=== PATIENT | female | born 1940 | race Caucasian/White ===

== ENCOUNTER 2020-10-03 11:50 | Outpatient (REF) | payer MEDICARE, OTHER, SELFPAY ==
[2020-10-03 13:24] LABS: Hematocrit 39.7 % (37-47); Hemoglobin 12.9 g/dl (12.0-16.0); Mean Corpuscular HGB Conc 32.5 g/dl (31.0-35.0); Mean Corpuscular Hemoglobin 29.1 pg (27.0-33.0); Mean Corpuscular Volume 89.6 fL (80-98); Mean Platelet Volume 10.1 fL (9.4-12.3); Platelet Count 264 X10*3/uL (160-400); Red Blood Count 4.43 X10*6/uL (4.20-5.50); Red Cell Distribution Width 13.5 % (11.0-16.0); White Blood Count 6.1 X10*3/uL (4.8-10.8)
[2020-10-03 13:40] LABS: Alanine Aminotransferase 16 U/L (0-31); Albumin Level 4.5 g/dL (3.5-5.0); Alkaline Phosphatase 76 U/L (39-117); Anion Gap 13 (12-20); Aspartate Amino Transferase 18 U/L (5-31); Bilirubin Total 0.7 mg/dL (0.0-1.0); Blood Urea Nitrogen 25 mg/dL (9-16); Calcium 9.2 mg/dL (8.4-10.2); Carbon Dioxide 26 mmol/L (22-29); Chloride 105 mmol/L (96-108); Cholesterol 147 mg/dL; Estimated Glomerular Filt Rate > 60; Glucose Fasting 95 mg/dL (60-99); HDL Cholesterol 64 mg/dL; LDL Cholesterol Calculated 67 mg/dl; Potassium 4.4 mmol/L (3.3-5.1); Sodium 140 mmol/L (135-145); Total Protein 7.1 g/dL (6.5-8.0); Triglycerides 83 mg/dL
[2020-10-04 09:33] LABS: Vitamin B12 538 pg/mL (200-900)
== END 2020-10-03 11:51 | disposition home or self-care (01) ==
LOC: HO.MANLDS 11:50
PROVIDERS: PCP Internal Medicine; Visit Provider Internal Medicine
DX: I10 Essential (primary) hypertension (principal); E78.00 Pure hypercholesterolemia, unspecified; E53.8 Deficiency of other specified B group vitamins
CPT/HCPCS: 36415; 80053; 80061; 82607; 85027

== ENCOUNTER 2021-10-12 10:47 | Outpatient (REF) | payer MEDICARE, OTHER, SELFPAY ==
[2021-10-12 13:59] LABS: Hematocrit 42.8 % (37.0-47.0); Hemoglobin 13.8 g/dl (12.0-16.0); Mean Corpuscular HGB Conc 32.2 g/dl (31.0-35.0); Mean Corpuscular Hemoglobin 28.5 pg (27.0-33.0); Mean Corpuscular Volume 88.4 fL (80.0-98.0); Platelet Count 286 X10*3/uL (160-400); Red Blood Count 4.84 X10*6/uL (4.20-5.50); Red Cell Distribution Width 14.5 % (11.0-16.0); White Blood Count 7.7 X10*3/uL (4.8-10.8)
[2021-10-12 14:20] LABS: Alanine Aminotransferase 22 U/L (0-31); Albumin Level 4.8 g/dL (3.5-5.0); Alkaline Phosphatase 94 U/L (39-117); Anion Gap 13 (12-20); Aspartate Amino Transferase 20 U/L (5-31); Bilirubin Total 0.6 mg/dL (0.0-1.0); Blood Urea Nitrogen 26 mg/dL (9-16); Calcium 10.2 mg/dL (8.4-10.2); Carbon Dioxide 27 mmol/L (22-29); Chloride 105 mmol/L (96-108); Cholesterol 165 mg/dL; Estimated Glomerular Filt Rate > 60; Glucose Fasting 110 mg/dL (60-99); HDL Cholesterol 71 mg/dL; LDL Cholesterol Calculated 80 mg/dl; Potassium 4.7 mmol/L (3.3-5.1); Sodium 140 mmol/L (135-145); Total Protein 7.7 g/dL (6.5-8.0); Triglycerides 71 mg/dL
[2021-10-12 14:44] LABS: Vitamin D 25-OH Total 53.3 ng/mL (>30)
== END 2021-10-12 10:48 | disposition home or self-care (01) ==
LOC: HO.MANLDS 10:47
PROVIDERS: PCP Internal Medicine; Visit Provider Internal Medicine
DX: E78.00 Pure hypercholesterolemia, unspecified (principal)
CPT/HCPCS: 36415; 80053; 80061; 82306; 85027

== ENCOUNTER 2022-04-16 09:39 | Outpatient (REF) | payer MEDICARE, OTHER, SELFPAY ==
[2022-04-16 11:10] LABS: MANUAL DIFF FLAG NO
[2022-04-16 11:20] LABS: Basophils Percent Auto 0.5 % (0-2); Eosinophils Absolute Auto 0.1 X10*3/uL (0.0-0.4); Hematocrit 41.1 % (37.0-47.0); Hemoglobin 13.2 g/dl (12.0-16.0); Imm Gran Abs Auto 0.02 X10*3/uL (0.00-0.03); Imm Gran Pct Auto 0.3 % (0.0-0.4); Lymphocytes Absolute Auto 1.5 X10*3/uL (1.2-4.9); Lymphocytes Percent Auto 22.8 % (20-40); Mean Corpuscular HGB Conc 32.1 g/dl (31.0-35.0); Mean Corpuscular Hemoglobin 28.3 pg (27.0-33.0); Mean Platelet Volume 9.8 fL (9.4-12.3); Monocytes Absolute Auto 0.6 X10*3/uL (0.1-1.2); Monocytes Percent Auto 8.9 % (2-11); Neutrophils Absolute Auto 4.2 x10*3/uL (2.0-8.3); Neutrophils Percent Auto 65.5 % (45-73); Platelet Count 247 X10*3/uL (160-400); Red Blood Count 4.67 X10*6/uL (4.20-5.50); Red Cell Distribution Width 13.9 % (11.0-16.0); White Blood Count 6.4 X10*3/uL (4.8-10.8)
[2022-04-16 11:35] LABS: Alanine Aminotransferase 20 U/L (0-31); Albumin Level 4.5 g/dL (3.5-5.0); Alkaline Phosphatase 77 U/L (39-117); Anion Gap 17 (12-20); Aspartate Amino Transferase 20 U/L (5-31); Bilirubin Total 0.7 mg/dL (0.0-1.0); Blood Urea Nitrogen 36 mg/dL (9-16); Calcium 9.8 mg/dL (8.4-10.2); Carbon Dioxide 25 mmol/L (22-29); Chloride 106 mmol/L (96-108); Cholesterol 175 mg/dL; Estimated Glomerular Filt Rate > 60; Glucose Random 106 mg/dL (60-115); HDL Cholesterol 67 mg/dL; LDL Cholesterol Calculated 94 mg/dl; Potassium 5.6 mmol/L (3.3-5.1); Sodium 142 mmol/L (135-145); Total Protein 7.1 g/dL (6.5-8.0); Triglycerides 74 mg/dL
== END 2022-04-16 09:40 | disposition home or self-care (01) ==
LOC: HO.MANLDS 09:39
PROVIDERS: Visit Provider Internal Medicine
DX: I25.9 Chronic ischemic heart disease, unspecified (principal)
CPT/HCPCS: 36415; 80053; 80061; 85025

== ENCOUNTER 2022-10-20 09:33 | Outpatient (REF) | payer MEDICARE, OTHER, SELFPAY ==
[2022-10-20 11:25] LABS: MANUAL DIFF FLAG NO
[2022-10-20 12:08] LABS: Basophils Absolute Auto 0.1 X10*3/uL (0.0-0.2); Basophils Percent Auto 0.7 % (0-2); Eosinophils Absolute Auto 0.1 X10*3/uL (0.0-0.4); Eosinophils Percent Auto 0.9 % (0-4); Hematocrit 44.5 % (37.0-47.0); Hemoglobin 14.3 g/dl (12.0-16.0); Imm Gran Abs Auto 0.04 X10*3/uL (0.00-0.03); Imm Gran Pct Auto 0.4 % (0.0-0.4); Lymphocytes Absolute Auto 1.8 X10*3/uL (1.2-4.9); Lymphocytes Percent Auto 17.9 % (20-40); Mean Corpuscular HGB Conc 32.1 g/dl (31.0-35.0); Mean Corpuscular Hemoglobin 28.3 pg (27.0-33.0); Mean Corpuscular Volume 87.9 fL (80.0-98.0); Mean Platelet Volume 10.1 fL (9.4-12.3); Monocytes Absolute Auto 0.7 X10*3/uL (0.1-1.2); Neutrophils Absolute Auto 7.4 x10*3/uL (2.0-8.3); Neutrophils Percent Auto 73.1 % (45-73); Platelet Count 288 X10*3/uL (160-400); Red Blood Count 5.06 X10*6/uL (4.20-5.50); Red Cell Distribution Width 14.5 % (11.0-16.0); White Blood Count 10.1 X10*3/uL (4.8-10.8)
[2022-10-20 12:45] LABS: Alanine Aminotransferase 15 U/L (0-31); Albumin Level 4.6 g/dL (3.5-5.0); Alkaline Phosphatase 93 U/L (39-117); Anion Gap 18 (12-20); Aspartate Amino Transferase 16 U/L (5-31); Bilirubin Total 0.9 mg/dL (0.0-1.0); Blood Urea Nitrogen 25 mg/dL (9-16); Calcium 9.7 mg/dL (8.4-10.2); Carbon Dioxide 22 mmol/L (22-29); Chloride 105 mmol/L (96-108); Cholesterol 165 mg/dL; Estimated Glomerular Filt Rate > 60; Glucose Random 103 mg/dL (60-115); HDL Cholesterol 78 mg/dL; LDL Cholesterol Calculated 75 mg/dl; Potassium 4.5 mmol/L (3.3-5.1); Sodium 140 mmol/L (135-145); Total Protein 7.3 g/dL (6.5-8.0); Triglycerides 63 mg/dL
[2022-10-20 12:53] LABS: Thyroid Stimulating Hormone 1.11 uIU/mL (0.32-4.0); Vitamin B12 1225 pg/mL (200-900)
== END 2022-10-20 09:34 | disposition home or self-care (01) ==
LOC: HO.MANLDS 09:33
PROVIDERS: Visit Provider Internal Medicine
DX: I25.9 Chronic ischemic heart disease, unspecified (principal); E53.8 Deficiency of other specified B group vitamins; G93.32 Myalgic encephalomyelitis/chronic fatigue syndrome
CPT/HCPCS: 36415; 80053; 80061; 82607; 84443; 85025

== ENCOUNTER 2023-05-16 07:48 | Outpatient (REF) | payer MEDICARE, OTHER, SELFPAY ==
[2023-05-16 14:08] LABS: Alanine Aminotransferase 17 U/L (0-31); Albumin Level 4.3 g/dL (3.5-5.0); Alkaline Phosphatase 80 U/L (39-117); Anion Gap 13 (12-20); Aspartate Amino Transferase 20 U/L (5-31); Bilirubin Total 0.5 mg/dL (0.0-1.0); Blood Urea Nitrogen 18 mg/dL (9-16); Calcium 9.7 mg/dL (8.4-10.2); Carbon Dioxide 24 mmol/L (22-29); Chloride 108 mmol/L (96-108); Cholesterol 163 mg/dL (<200); Estimated Glomerular Filt Rate > 60; Glucose Fasting 95 mg/dL (60-99); HDL Cholesterol 67 mg/dL (>40); LDL Cholesterol Calculated 82 mg/dL (<100); Potassium 4.1 mmol/L (3.3-5.1); Sodium 141 mmol/L (135-145); Total Protein 7.3 g/dL (6.5-8.0); Triglycerides 72 mg/dL (<150)
[2023-05-16 14:27] LABS: Vitamin D 25-OH Total 118.1 ng/mL (>30)
== END 2023-05-16 07:49 | disposition home or self-care (01) ==
LOC: HO.MANLDS 07:48
PROVIDERS: Visit Provider Internal Medicine
DX: E78.00 Pure hypercholesterolemia, unspecified (principal); I10 Essential (primary) hypertension; E55.9 Vitamin D deficiency, unspecified
CPT/HCPCS: 36415; 80053; 80061; 82306

== ENCOUNTER 2025-02-07 08:00 | Outpatient (AMB) | payer MEDICARE, OTHER, SELFPAY ==
--- OUTSIDE RECORDS SUMMARY | 2025-02-07 08:03 | XMS_ITS | Data Portability ---
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 REVIEW OF PRIOR EXTERNAL NOTES/RESULTS, ORDERING OF TEST(S) CATEGORY 2. 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) MDM MODERATE MUST MEET 2 OUT OF 3 ELEMENTS: PROBLEMS, DATA OR RISK ELEMENT 1: PROBLEMS ADDRESSED 1 OR MORE CHRONIC ILLNESS WITH EXACERBATION OR 2 OR MORE STABLE CHRONIC ILLNESSES OR 1 UNDIAGNOSED NEW PROBLEM OR 1 ACUTE ILLNESS W/SYMPTOMS OR 1 ACUTE COMPLICATED INJURY ELEMENT 2: DATA MUST MEET 1 OF 3 CATEGORIES CATEGORY 1: REVIEW OF PRIOR EXTERNAL NOTES, REVIEW OF RESULTS, ORDERING OF EACH TEST, ASSESSMENT REQUIRING INDEPENDENT HISTORIAN OR CATEGORY 2: INDEPENDENT INTERPRETATION OF TESTS BY ANOTHER PHYSICIAN OR SPECIALIST OR CATEGORY 3: DISCUSSION OF MGT OR TEST INTERPRETATION W/EXTERNAL PHYSICIAN OR SPECIALIST ELEMENT 3: RISK RISK OF COMPLICATIONS AND/OR MORBIDITY OR MORTALITY OF PATIENT MANAGEMENT PROVIDER MUST THOROUGHLY DOCUMENT EACH ELEMENT THAT IS COVERED Not available 04/25/2024 09:54:52 09/21/2024 09/21/2024 [id number] [place] [id number] (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 REVIEW OF PRIOR EXTERNAL NOTES/RESULTS, ORDERING OF TEST(S) CATEGORY 2. 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) MDM MODERATE MUST MEET 2 OUT OF 3 ELEMENTS: PROBLEMS, DATA OR RISK ELEMENT 1: PROBLEMS ADDRESSED 1 OR MORE CHRONIC ILLNESS WITH EXACERBATION OR 2 OR MORE STABLE CHRONIC ILLNESSES OR 1 UNDIAGNOSED NEW PROBLEM OR 1 ACUTE ILLNESS W/SYMPTOMS OR 1 ACUTE COMPLICATED INJURY ELEMENT 2: DATA MUST MEET 1 OF 3 CATEGORIES CATEGORY 1: REVIEW OF PRIOR EXTERNAL NOTES, REVIEW OF RESULTS, ORDERING OF EACH TEST, ASSESSMENT REQUIRING INDEPENDENT HISTORIAN OR CATEGORY 2: INDEPENDENT INTERPRETATION OF TESTS BY ANOTHER PHYSICIAN OR SPECIALIST OR CATEGORY 3: DISCUSSION OF MGT OR TEST INTERPRETATION W/EXTERNAL PHYSICIAN OR SPECIALIST ELEMENT 3: RISK RISK OF COMPLICATIONS AND/OR MORBIDITY OR MORTALITY OF PATIENT MANAGEMENT PROVIDER MUST THOROUGHLY DOCUMENT EACH ELEMENT THAT IS COVERED note toma questions answered about her Not available 10/31/2024 09:58:05 Plan of Treatment Reminders Order Date Submit Date Provider Last Modified By Organization Details Last Modified Time Details Appointments MEDIC[facility] ANNUAL [facility]LLNESS 2024 10:00A M DR FIERRO Not available Not available Not available Lab vitamin D, 25-hydrox y, total, serum 2024 025 [facility], [address], 10/31/2024 09:48:21 Referral None recorded. Procedures None recorded. Surgeries None recorded. Imaging None recorded. Medication Orders ibandrona te 150 mg tablet 2024 025 ELIZABETH [id number], [address] [facility] [facility], [place], [address], 10/31/2024 09:47:02 Patient TargetsNo targets recorded. Patient Instructions Encounter Date Encounter Id Patient Instructions Last Modified By Organization Details Last Modified Time 02/06/2024 [id number] knee arthritis: care instructions Not available 02/06/2024 10:23:17 04/25/2024 [id number] pulse oximetry* ELIZABETH Not available 04/25/2024 10:02:11 leg and ankle edema: care instructions Not available 04/25/2024 09:55:26 08/21/2024 [id number] knee arthritis: care instructions Not available 08/21/2024 11:37:45 pulse oximetry* Not available 08/21/2024 11:37:20 09/21/2024 [id number] knee arthritis: care instructions Not available 09/21/2024 10:51:42 10/31/2024 [id number] osteoporosis: care instructions Not available 10/31/2024 09:47:01 Reason for Referral None Reported. Results Created Date Observation Date Name Description Value Unit Range Abnormal Flag Note LastModifiedBy Organization Detail LastModifiedTime 04/25/2004/25/2024 pulse oxime try* Result 98% Not Available [facility] [address] [place] [address], [place], [address], 04/23/2024 14:04:44 08/21/19 25 08/21/2024 pulse oxime try* Result 98 Not Available [facility] [address] [place] [address] D, [place], [address], 08/17/2024 08:57:39 04/06/2004/06/2024 chris LAWRENCE, miguelangel al, bilfelipa toussaint No observ ation record ed. [email or web address] [facility] [address] [facility] [address], [place], [address], 04/06/2024 11:05:39 06/06/20 24 05/31/2024 cardi ac stres s test No observ ation record ed. [email or web address] [facility] [address], [place], [address], 06/06/2024 08:45:13 06/12/20 24 06/12/2024 trans -thor acic echoc ardio gram (TTE) (PROC ) No observ ation record ed. [email or web address] [facility] [address], [place], [address], 06/12/2024 09:58:36 10/18/19 25 10/16/2024 bone densi ty No observ ation record ed. [email or web address] [facility] [address] [facility] [address], [place], [address], 10/19/2024 09:32:50 11/21/19 25 11/19/2024 XR, clementina nelson, 2 or more view No observ ation record ed. [address], [place], [address], 11/22/2024 22:26:11 Result Notes None recorded. Problems Name Problem SNOMED Code Status Onset Date Resolution Date Notes Provider Name and Address Organization Details Recorded Time Ischemic heart disease 863650153 Active 2017 s/p stent 2004 Not Available [facility] 3 12:18:28 Hyperchol esterolem ia 25095436 Active 2017 Not Available [facility] 3 12:18:27 History of myocardia l infarctio n 285233360 Active 2017 Not Available [facility] 3 12:18:28 Hypertens gabriela disorder 71803726 Active 2017 Not Available [facility] 3 12:18:28 Osteopeni a 621482176 Active 2017 Not Available [facility] 3 12:18:27 Cobalamin deficienc y 295598990 Active 2019 Not Available [facility] 3 12:18:27 Lumbar arthritis 825937773 Active 2019 Not Available [facility] 3 12:18:28 Perniciou s anemia 17924895 Active 2019 b12 def Not Available [facility] 3 12:18:28 Eczema 31693121 Active 2021 Not Available [facility] 3 12:18:28 Hyperkale viry 17082168 Active 2021 Not Available [facility] 3 12:18:27 Osteoarth ritis of knee 355892433 Active 2022 Not Available [facility] 3 12:18:27 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 Not Available [facility] 3 12:18:28 Pain of left shoulder joint 856742864530 02181 Active 2022 Not Available [facility] 3 12:18:27 Calcific tendiniti s of left shoulder 732956706654 108 Active 2022 Not Available [facility] 3 12:18:27 Vitamin D deficienc y 34981899 Active 2022 Anthony Fierro, [address] [place] [address], [address], [facility] 3 14:47:52 Postmenop ausal osteopeni a 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 Active 2023 Anthony Fierro, [address] [place] [address], [address], [facility] 4 10:25:23 Pain of bilateral knee joints 779261175259 104 Active 2023 Anthony Fierro DO [address] [place] [address], [address], [facility] 4 10:27:34 Edema of lower extremity 544380532 Active 2023 Anthony Fierro DO [address] [place] [address], [address], [facility] 4 10:36:58 Osteoporo sis 89570638 Active 2024 Anthony Fierro DO [address] [place] [address], [address], [facility] 5 09:45:56 Pain of left shoulder region Active 2024 Anthony Fierro DO [address] [place] [address], [address], [facility] 5 14:20:27 Left rotator cuff strain Active 2024 Anthony Fierro DO [address] [place] [address], [address], [facility] 5 22:27:16 Problem Notes None recorded. Procedures Surgical History Date Name Laterality Status Provider Name and Address Organization Details Recorded Time 025 Corticosteroid Injection completed Anthony Fierro DO [address] [place] [address], [phone], [facility] 09/21/2024 10:51:23 025 Corticosteroid Injection completed Anthony Fierro DO [address] [place] [address], [address], [facility] 08/21/2024 11:37:15 024 Corticosteroid Injection completed Anthony Fierro DO [address] [place] [address], [address], [facility] 02/06/2024 10:22:54 024 Corticosteroid Injection completed Anthony Fierro DO [address] [place] [address], [address], [facility] 01/18/2024 12:03:15 023 Corticosteroid Injection completed Anthony Fierro DO [address] [place] [address], [address], [facility] 06/20/2023 11:50:16 023 Corticosteroid Injection completed Anthony Fierro DO [address] [place] [address], [address], [facility] 05/27/2023 14:39:49 023 Corticosteroid Injection completed Anthony FierroDO [address] [place], [address], [facility] 11/16/2022 15:59:32 023 Corticosteroid Injection completed Lupe Law [facility] 10/26/2022 13:39:01 023 Corticosteroid Injection completed Anthony Fierro, [address] [place], [address], [facility] 10/15/2022 12:32:01 Imaging Results None recorded. Procedure Notes None recorded. Medical Equipment None Reported. Allergies Allergen ID Allergen Name Allergen Category Reaction Reaction Severity Criticality Documentation Date Start Date Code Code System Note Provider Name and Address Organization Details Recorded Time 1960 lisinopri l medicatio n cough Not available Not available 02/13/2018 60938 [facility] 08:[facility] Medications Name Sig Start Date Stop Date Status Note LastModified by Organization Details LastModified Time atorvastati n 40 mg tablet Take 1 tablet every day by oral route for 30 days. active Not Available Not Available No t Available desonide 0.05 % topical cream APPLY SPARINGLY AND RUB GENTLY INTO THE AFFECTED AREA TWICE A DAY active Not Available Not Available No t Available prednisone 10 mg tablet TAKE 4 TAB DAILY FOR 2 DAYS, 3 TAB DAILY FOR 2 DAYS, 2 TABS DAILY FOR 2 DAYS, 1 TAB DAILY FOR 2 DAYS 01/23 completed Not Available Not Available Not Available atorvastati n 20 mg tablet TAKE 1 TABLET BY MOUTH EVERY DAY 10/31 completed Not Available Not Available Not Available tizanidine 2 mg tablet TAKE 1 TABLET BY MOUTH EVERY 8 HOURS NEEDED FOR SPASMS 04/16 completed Not Available Not Available Not Available meloxicam 15 mg tablet Take 1 tablet every day by oral route as needed for 30 days. 10/03 completed Not Available Not Available Not Available alendronate 70 mg tablet TAKE 1 TABLET BY MOUTH ONE TIME PER WEEK 10/18 completed Not Available Not Available Not Available aspirin 81 mg tablet,suad yed release Take 1 tablet every day by oral route. active Not Available Not Available No t Available tramadol 50 mg tablet TAKE 1 TABLET BY MOUTH EVERY 6 HOURS NEEDED FOR 7 DAYS 05/13 completed Not Available Not Available Not Available triamcinolo ne acetonide 0.1 % topical cream APPLY THIN COAT TO AFFECTED AREA TWICE A DAY 05/13 completed Not Available Not Available Not Available simvastatin 40 mg tablet Please specify direction s, refills and quantity 02/24 completed Not Available Not Available Not Available famotidine 20 mg tablet TAKE 1 TABLET BY MOUTH DAILY FOR 6 DAYS 04/16 completed Not Available Not Available Not Available amlodipine 10 mg tablet TAKE 1 TABLET BY MOUTH EVERY DAY active Not Available Not Available No t Available losartan 25 mg tablet TAKE 1 TABLET (25 MG TOTAL) BY MOUTH DAILY. active Not Available Not Available No t Available nitroglycer in 0.[address] 1 TABLET UNDER THE TONGUE EVERY 5 MINUTES NEEDED. active Not Available Not Available No t Available codeine 10 mg-guaifene sin 100 mg/5 mL oral liquid Take 10 mL 4 times a day by oral route for 10 days. 02/14 completed Not Available Not Available Not Available diclofenac sodium 50 mg tablet,suad yed release TAKE 1 TABLET BY MOUTH TWICE A DAY active Not Available Not Available No t Available methylpredn isolone 4 mg tablets in a dose pack TAKE BY MOUTH DIRECTED PER PACKAGE INSTRUCTI ONS 04/16 completed Not Available Not Available Not Available diazepam 5 mg tablet 12/01 completed Not Available Not Available Not Available oxycodone 5 mg tablet TAKE 1 TABLET BY MOUTH THREE TIMES A DAY NEEDED FOR 7 DAYS 09/07 completed Not Available Not Available Not Available ibandronate 150 mg tablet TAKE 1 TABLET BY MOUTH EVERY MONTH active Not Available Not Available No t Available Vitamin D3 50 mcg (2,000 unit) capsule Take 1 capsule every day by oral route. active Not Available Not Available No t Available Shingrix (PF) 50 mcg/0.5 mL intramuscul ar suspension, kit 08/22 completed Not Available Not Available Not Available B12 Active 1,000 mcg chewable tablet Take by oral route. active Not Available Not Available No t Available [employer] COVID-19 Antigen Home Test kit Use as Directed on the Package 05/13 completed Not Available Not Available Not Available Vitals Date Recorded Body height Body mass index (BMI) Body weight Provider Name and Address Organization Details Last Updated DateTime 09/21/2024 152.4 cm 24.4 kg/m2 63562.05 g Rudolph Carlson [place] Nargis [facility] 09/21/2024 10:26:59 Date Recorded Body height Body mass index (BMI) Body weight Heart rate Oxygen saturation Oxygen saturation in Arterial blood by Pulse oximetry Systolic And Diastolic Provider Name and Address Organization Details Last Updated DateTime 5 152.4 cm 24.4 kg/m2 34888.0 5 g 71 /min 99 % 99 % 140/70 mm[Hg] Charu Linder [facility] 5 09:36:03 Date Recorded Body height Body mass index (BMI) Body weight Heart rate Oxygen saturation Oxygen saturation in Arterial blood by Pulse oximetry Systolic And Diastolic Provider Name and Address Organization Details Last Updated DateTime 4 152.4 cm 24.4 kg/m2 38978.0 5 g 63 /min 98 % 98 % 130/70 mm[Hg] Charu Linder [facility] 4 09:45:51 Social History Question Answer Notes LastModified by Organizat ion Details LastModified Time Tobacco Smoking Status Never Smoker Not Available [facility] 05/27/2020 03:36:23 What Was The Date Of Your Most Recent Tobacco Screening? 10/31/2024 [email or web address] Information not available 10/31/2024 Sex: Unknown Functional Status Question Answer Note LastModified by Organization D etails LastModified Time Do you or have you ever used any other forms of tobacco or nicotine? No Information not available 10/20/2022 Mental Status None recorded. Family History Nothing Reported. Medical History No medical history recorded. Gynecological HistoryNo gynecological history recorded. Obstetrics History GPAL:G 0 P 0 0 0 0 Immunizations Vaccine Type Date Status Note Provider Nam e and Address Organization Details Recorded Time Influenza, split virus, quadrivalent, preservative 8 completed Not Available [facility] 06/28/2023 08:21:20 Influenza, split virus, quadrivalent, preservative 2 completed Not Available [facility] 06/28/2023 08:21:20 influenza, unspecified formulation 3 completed Not Available [facility] 06/28/2023 08:21:20 Respiratory syncytial virus (RSV) vaccine, unspecified 3 completed Not Available [facility] 06/28/2023 08:21:20 Respiratory syncytial virus (RSV) vaccine, unspecified 3 completed Not Available [facility] 06/28/2023 08:21:20 Influenza, [place] 4 completed [facility]tson [place] [facility] 05/18/2024 11:14:19 zoster live 9 completed Not Available [facility] 06/28/2023 08:21:20 Influenza, split virus, quadrivalent, preservative 9 completed Not Available [facility] 06/28/2023 08:21:20 zoster live 9 completed Not Available [facility] 06/28/2023 08:21:20 Pneumococcal conjugate PCV 13 0 completed Not Available [facility] 06/28/2023 08:21:20 Influenza, split virus, quadrivalent, preservative 0 completed Not Available [facility] 06/28/2023 08:21:20 COVID-19, mRNA, LNP-S, PF, 100 mcg/0.5mL dose or 50 mcg/0.25mL dose 1 completed Not Available [facility] 06/28/2023 08:21:20 COVID-19, mRNA, LNP-S, PF, 100 mcg/0.5mL dose or 50 mcg/0.25mL dose 1 completed Not Available [facility] 06/28/2023 08:21:20 pneumococcal polysaccharide PPV23 7 completed Not Available [facility] 06/28/2023 08:21:20 Tdap 0 completed Not Available [facility] 06/28/2023 08:21:20 Past Encounters Encounter ID Performer Location Encounter Start Date Encounter Closed Date Diagnosis/Indication Diagnosis SNOMED-CT Code Diagnosis ICD10 Code Diagnosis Note [id number] DO Mireya Bryan [facility] [address] [facility] [place] [address] 02/13/2018 10:02:40 02/13/2018 11:32:26 Osteopenia 893364252 M85.80 taking vitamin d supplement no calcium due to gi upset getting from diet Ischemic h eart disease 677453218 I25.9 comp;letel y asymptomat ic Hypertensive disorder 38 353752 I10 excellent bp no chng in meds Hypercholesterolemia 136 29913 E78.00 LDL was 67 HDL 60 superb reviewed in detail [id number] Anthony Fierro [facility] [address] [facility] [address] [address] 03/31/2018 10:55:35 03/31/2018 12:27:12 Dysfunction of eustachian tube 66116287 H69.92 Hypertensive disorder 38 799313 I10 stable [id number] Anthony Fierro [facility] [address] [facility] [address] [facility] [place] [address] 08/18/2018 09:51:44 08/18/2018 12:21:24 Hypertensive disorder 74484463 I10 excellent bp no chng in meds Hypercholesterolemia 136 41087 E78.00 LDL was 67 HDL 60 superb reviewed in detail Upper resp iratory infection 54075368 J06.9 has been slowly resolving [id number] Anthony Fierro [facility] [address] [facility] [address] [address] 02/14/2019 08:53:18 02/14/2019 09:37:32 Hypertensive disorder 15075349 I10 excellent bp no chng in meds dr tom happy with current regimen Hypercholesterolemia 136 15688 E78.00 LDL was 64 HDL 60 superb reviewed in detail Ischemic h eart disease 134794722 I25.9 completely asymptomat ic unsure what the last back pain episode was has not returned but will calll me immmediate ly if it returns Osteopenia 306910741 M85 .80 taking vitamin d supplement no calcium due to gi upset getting from diet but has been doing wgt exercises and working hard and is even doing stretching exercises [id number] Anthony Fierro [facility] [address] [facility] [address] [address] 08/22/2019 08:57:57 08/22/2019 09:58:10 Ischemic heart disease 424052406 I25.9 completely asymptomat ic unsure what the last back pain episode was has not returned but will calll me immmediate ly if it returns Hypertensive disorder 38 208494 I10 excellent bp no chng in meds dr tom happy with current regimen Hypercholesterolemia 136 02960 E78.00 LDL was 66 HDL 56 superb reviewed in detail Cobalamin deficiency 190 210862 E53.8 B12 level 146 Osteopenia 027571188 M85 .80 taking vitamin d supplement no calcium due to gi upset getting from diet but has been doing wgt exercises and working hard and is even doing stretching exercises Inguinal pain 463619823 R10.2 will treat with meloxicam for 10 days [id number] Anthony Fierro [facility] [address] [facility],[place] [address] 09/26/2019 11:51:20 09/26/2019 12:16:23 Hypertensive disorder 15347969 I10 excellent bp no chng in meds dr tom happy with current regimen Cobalamin deficiency 190 006688 E53.8 B12 level was 146 and is now 2933 following a month of supplwmwnt s orally will rechk her level in another 4 months and if good will d/c her b12 Ischemic h eart disease 872575466 I25.9 completely asymptomat ic unsure what the last back pain episode was has not returned but will calll me immediatel y if it returns Degenerati ve lumbar spinal stenosis 988487613 M48.061 she has been taking meloxicam prn for bad apin with some relief i explained to her the problems with nsaids particular luis eduardo in people with hx of ischemic heart and how we need to be extra careful with [place] [id number] Anthony Fierro [facility] [address] [facility],[place] [address] 02/25/2020 10:20:44 02/25/2020 10:54:07 Hypercholesterolemia 80560043 E78.00 LDL was 66 HDL 56 superb reviewed in detail Hypertensive disorder 38 438843 I10 excellent bp no chng in meds dr tom happy with current regimen Osteopenia 051769226 M85 .80 taking vitamin d supplement no calcium due to gi upset getting from diet but has been doing wgt exercises and working hard and is even doing stretching exercises History of myocardial infarction 340804342 I25.2 asymptomat ic Cobalamin deficiency 190 050592 E53.8 B12 level was 146 and is now 2933 following a month of supplwmwnt s orally will rechk her level in another 4 months and if good will d/c her b12 Lumbar arthritis 8266639 01 M46.96 hurts with any signif exertion but otherwise stable Pernicious anemia 277509 09 D51.0 was stable in josephine will need rechk [id number] Anthony Fierro [facility] [address] [facility] [address],[employer] [place] [address] 10/03/2020 11:08:14 10/03/2020 12:44:58 Hypertensive disorder 99195023 I10 excellent bp no chng in meds dr tom happy with current regimen Hypercholesterolemia 136 25056 E78.00 LDL was 66 HDL 56 superb reviewed in detail Ischemic h eart disease 025503021 I25.9 completely asymptomat ic unsure what the last back pain episode was but will me immediatel y if having any chest pain Lumbar arthritis 1213660 01 M46.96 hurts with any signif exertion but otherwise stable but overall she is haniging in there uses diclofenac bid but has used the meloxicam before too she will stay on the diclof with the option of holding the second dose if doing good Cobalamin deficiency 190 677569 E53.8 we will check her b12 level Arthritis of right knee [id number] M13.861 told us that she saw dr carter for her knee pain told it was djd and she was given a cortisone inj with good response told her to let us know if and when she needs another that we would give her the shot [place] [id number] Anthony Fierro [facility] Internal Medicine [address] [facility] on [address],[employer] [place] [address] 10/28/2020 16:21:49 10/28/2020 17:04:51 Lumbago with sciatica 447634590 M54.41 Hypertensive disorder 38 130583 I10 excellent bp no chng in meds dr tom happy with current regimen [id number] Anthony Fierro [facility] Internal Medicine [address] [facility] [address],[place] [address] 12/01/2020 14:07:54 12/01/2020 15:04:14 Spinal stenosis of lumbar region 89622066 M48.062 awaiting appt with neurosurg will send mri copy [id number] Anthony Fieror [facility] Internal Medicine [address] [facility],[place] [address] 02/06/2021 11:56:46 02/06/2021 12:37:18 Pre-surgery evaluation [id number] Z01.818 Per the Revised cardiac Risk stratifica tion , her MACE is determined to be at a low level and she currently does not require further evaluation .patient understand s to take her medication s as usual on the day of her procedure. [place] [id number] Anthony Fierro [facility] Internal Medicine [address] [facility], [place] [address] 04/06/2021 10:07:32 04/07/2021 16:47:32 Hypertensive disorder 01796792 I10 excellent bp no chng in meds dr tom happy with current regimen Ischemic h eart disease 079300895 I25.9 completely asymptomat ic unsure what the last back pain episode was but will me immediatel y if having any chest pain Low back pain 274904907 M54.5 at incision site area is sl puffy biut no evid of infect will tx wwith nsaid and oxycod at nightpt to call the surgeon [id number] Anthony Fierro [facility] Internal Medicine [address] [facility] [address],[place] [address] 10/12/2021 09:58:13 10/13/2021 11:03:26 Hypercholesterolemia 84766885 E78.00 LDL was 66 HDL 56 superb reviewed in detail Hypertensive disorder 38 374933 I10 excellent bp no chng in meds dr tom happy with current regimen Lumbar arthritis 4258152 01 M46.96 hurts with any signif exertion but otherwise stable surgery has been good but overall she is haniging in there uses diclofenac bid but has used the meloxicam before too she will stay on the diclof with the option of holding the second dose if doing good Ischemic h eart disease 615543290 I25.9 completely asymptomat ic unsure what the last back pain episode was but will me immediatel y if having any chest pain [id number] Anthony Fierro [facility] Internal Medicine [address] [facility],[place] [address] 04/16/2022 08:58:23 04/16/2022 13:50:19 Hypertensive disorder 54462805 I10 excellent bp no chng in meds dr tom happy with current regimen History of myocardial infarction 577775277 I25.2 asymptomat ic Ischemic h eart disease 289714681 I25.9 completely asymptomat ic unsure what the last back pain episode was but will me immediatel y if having any chest pain Eczema 03157387 L30.9 [id number] Anthony Fierro [facility] Internal Medicine [address] [facility] [place] [address] 10/15/2022 11:54:15 10/15/2022 13:47:16 Osteoarthritis of knee 557011146 M17.9 sanjay her jarek inj to right knee [id number] Anthony Fierro [facility] Internal Medicine [address] [facility] [place] [address] 10/20/2022 08:47:20 10/20/2022 09:24:53 Hypertensive disorder 99620779 I10 excellent bp no chng in meds dr tom happy with current regimen Hypercholesterolemia 136 26653 E78.00 needs new lab Ischemic h eart disease 719197763 I25.9 completely asymptomat ic unsure what the last back pain episode was but will me immediatel y if having any chest pain Lumbar arthritis 6921653 01 M46.96 hurts with any signif exertion but otherwise stable surgery has been good but overall she is haniging in there uses diclofenac bid but has used the meloxicam before too she will stay on the diclof with the option of holding the second dose if doing good Cobalamin deficiency 190 112963 E53.8 we will check her b12 level [id number] Anthony Fierro DO [facility] Internal Medicine [address] [facility] [address],[place] [address] 10/26/2022 13:21:02 10/26/2022 16:33:48 Osteoarthritis of knee 881996656 M17.9 sanjay her jarek inj to left knee [id number] Anthony Moses Ronen [facility] Internal Medicine [address] [facility] [address],[place] [address] 11/16/2022 14:52:26 11/16/2022 15:56:39 Osteoarthritis of shoulder region 60331640 M19.019 jarek inj well tolerat [id number] Anthony Moses Ronen [facility] Internal Medicine [address] [facility], [place] 7 05/13/2023 14:00:54 05/13/2023 15:04:16 Hypercholesterolemia 43589374 E78.00 needs new lab no prob with meds Ischemic h eart disease 676444893 I25.9 completely asymptomat ic unsure what the last back pain episode was but will me immediatel y if having any chest pain Hypertensive disorder 38 872047 I10 excellent bp no chng in meds dr tom happy with current regimen Vitamin D deficiency 347 73562 E55.9 need to chk lab Osteoarthr itis of knee 587099150 M17.9 will order kenalog for her to get cortisone inj of both knees [id number] Anthony Fierro [facility] Internal Medicine [address] [facility],[place] [address] 05/27/2023 14:17:08 05/27/2023 15:20:05 Osteoarthritis of knee 383390069 M17.9 M17.11 well tolerated [id number] [facility] [address] [facility],[place] 7 06/20/2023 11:29:44 06/20/2023 12:21:47 Osteoarthritis of knee 610419937 M17.9 M17.11 well tolerated [id number] [facility] [address] [facility] [address],[place] 7 12/23/2023 09:48:56 12/23/2023 10:51:28 Depression screening 840329371 Z13.31 neg Postmenopa usal osteopenia 489415048 M85.80 will rechk her bone density since 2 yrs ago had lost some mass Pain of bi lateral knee joints 1638311051 59759 M25.561 M25.562 we will order kenalog and set up appt Hyperkalemia 70504284 E8 7.5 will need lab to chk Osteoarthr itis of knee 572737019 M17.9 M17.11 will order the kenalog and set up inj Eczema 62049248 L30.9 will try a very TINY amount of desonide cream Hypertensive disorder 38 007496 I10 excellent bp no chng in meds dr tom happy with current regimen Edema of l ower extremity 809013579 R60.0 just a trace we will use elevation support stockings etc [id number] Anthony Fierro [facility] Internal Medicine [address] [facility],[place] [address] 01/18/2024 11:10:26 01/18/2024 13:59:45 Osteoarthritis of knee 238849826 M17.9 M17.11 well sanjay [id number] Anthony Fierro [facility] Internal Medicine [address] [place] [address] 02/06/2024 10:01:06 02/06/2024 11:05:35 Osteoarthritis of knee 682380810 M17.9 M17.11 well sanjay [id number] Anthony Fierro [facility] Internal Medicine [address] [place] [address] 04/25/2024 09:35:39 04/25/2024 10:00:47 Hypercholesterolemia 94211893 E78.00 doing well no issues Ischemic h eart disease 365820375 I25.9 completely asymptomat ic unsure what the last back pain episode was but will me immediatel y if having any chest pain Hypertensive disorder 38 722041 I10 excellent bp no chng in meds dr tom happy with current regimen Edema of l ower extremity 417433621 R60.0 no edema Cobalamin deficiency 190 077876 E53.8 we will check her b12 level [id number] Anthony Ibarraham [facility] Internal Medicine [address] [facility] [address],[place] [address] 08/21/2024 08:50:58 08/21/2024 10:03:10 Ischemic heart disease 335681116 I25.9 completely asymptomat ic unsure what the last back pain episode was but will me immediatel y if having any chest pain Osteoarthr itis of knee 353018688 M17.9 M17.11 well sanjay [id number] Anthony Ibarraham [facility] Internal Medicine [address] [facility] [address],[place] [address] 09/21/2024 10:20:36 09/21/2024 13:21:45 Depression screening 862541792 Z13.31 neg Osteoarthr itis of knee 516202925 M17.9 M17.11 well sanjay [id number] Anthony Ibarraham [facility] Internal Medicine [address] [facility] [address],[place] [address] [place] [facility] [place] [address] 10/31/2024 09:27:01 10/31/2024 11:48:26 Depression screening 095631391 Z13.31 neg Hypercholesterolemia 136 53842 E78.00 doing well no issues Hypertensive disorder 38 602696 I10 excellent bp no chng in meds dr tom happy with current regimen Ischemic h eart disease 057491456 I25.9 completely asymptomat ic unsure what the last back pain episode was but will me immediatel y if having any chest pain Vitamin D deficiency 347 13721 E55.9 need to chk lab Osteoporosis 90948394 M8 1.0 st;ill very osteoporot ic despite alendronat e this was discontinu ed we will try an alternativ e with ibandronat e and rechk in a year pt is very active and mobile and wants to remain so Health Concerns Section Related Observation LastModified by Organization Detai ls LastModified Time None Recorded Concern Status LastModified by Organization Details LastModified Time None Recorded Advance Directives Directive None Recorded Payers Insurance Date Sequence Insurance Name Policy Number Policy Quach Covered Member ID Quach Member ID Guarantor Name 10/29/2024 2 [facility] [id number] Michelle Aparicio [id number] Michelle Aparicio 10/28/2024 1 MEDICARE B-KS: [facility] Michelle Aparicio [id number] Michelle Aparicio Notes Date Note Type Note Provider Name and Address Organization Details Recorded Time 02/06/20 24 text/htm l here for left knee jarek injhas had before with great reliefnow left knee has been bothering as of lateno contraindicat Anthony Moses Ronen, DO [address] [place] [address], [phone], [facility] Internal Medicine 02/06/2024 10:27:01 04/25/20 24 text/htm l Care Management - HypertensionReported bypatient.Self Care:not under emotional stress Severity:symptoms are improving; does not interfere with daily activities Associated Symptoms:no dizziness; no lightheadedness; no chest pain; no shortness of breath; no palpitations; no edema; no calf muscle cramps; no blurred vision; no confusion; no headaches; no fatigue here for rechk and relates is doing ok overallno cp no sobsleep is okrelates has had a lot of work at her house but she is stressed about her and his memory loss issues Anthony Moses Ronen, DO [address] [place] [address], [phone], [facility] Internal Medicine 04/25/2024 09:58:18 08/21/19 25 text/htm l here for her jarek inj of her right knee which has been getting worse over time Anthony SandraKiana Fierro, DO [address] [place] [address], [phone], [facility] Internal Medicine 08/21/2024 11:38:11 09/21/19 25 text/htm l here for jarek inj Anthony Moses Ronen DO [address] [place] [address], [phone], [facility] Internal Medicine 09/21/2024 10:52:29 11/01/19 25 text/htm l Care Management - Coronary Artery Disease (CAD)Reported bypatient.Self Care:not under emotional stress Severity:symptoms are improving; does not interfere with daily activities Associated Symptoms:no chest pain; no shortness of breath; no left arm pain; no back pain; no neck pain; no left shoulder pain; no right shoulder pain; no numbness; no sweatsCare Management - HyperlipidemiaReported bypatient.Control:usually well controlled; improving; at goal Complications:no coronary artery disease; no heart attack; no cardiovascular disease; no pancreatitis; no strokeCare Management - HypertensionReported bypatient.Self Care:not under emotional stress Severity:symptoms are improving; does not interfere with daily activities Associated Symptoms:no dizziness; no lightheadedness; no chest pain; no shortness of breath; no palpitations; no edema; no calf muscle cramps; no blurred vision; no confusion; no headaches; no fatigueNotes:stable on the amlodipineCare management - Vitamin D Deficiency/OsteoporosisRep orted bypatient.Height:height stable Fracture History:no history of recent fracture Associated Symptoms:no bone pain; no history of kidney stones Patient is a __ 84 year old female with a history of hypertension. Patient had been stable on medication until recently. Patient returns today for further evaluation. Patient denies lightheadedness or dizziness. Anthony Fierro, DO [address] [facility], [place], [address], [facility] 10/31/2024 09:58:19 OBGyn Episode No OBEpisode recorded.
--- NOTE | 2025-02-07 08:27 | MHC.OFFVIS ---
Vital Signs 02/07/25 08:32 Height 5 ft 1 in Weight 120 lb BMI 22.7 Intake Visit Reasons: New Pt - Left shoulder Pain Intake Note: Michelle is a n 84 year old right hand dominant female who presents today as a new patient with complaints of left shoulder pain. Patient reports her pain has been present since 11/25/24 after she sustained a fall on her left side. She followed up with her PCP due to pain with ROM. Her pain is located primarily in her shoulder however she has soreness in her bicep area. No numbness or tingling. No other treatments. Allergies No Known Allergies Allergy (Verified 02/07/25 08:32) Medication List - Last Reconciled 02/07/25 by Giovanni Vaughn PA-C amlodipine 10 mg PO DAILY aspirin (Adult Low Dose Aspirin) 81 mg PO DAILY atorvastatin 40 mg PO DAILY cholecalciferol (vitamin D3) 50 mcg PO DAILY diclofenac sodium 50 mg PO BID ibandronate 150 mg PO losartan 25 mg PO DAILY mecobalamin (vitamin B12) 1,000 mcg PO DAILY nitroglycerin mg sublingual HPI HPI New Pt - Left shoulder Pain: Details: 84-year-old female presents to the office today for left shoulder pain. She had an injury proximally 2 months ago where she fell on her left side. She states she was standing outside on a cement walkway and as she turned she may have caught her foot and fell. She landed on the left side. Initially, she was ok ; however, a day or so later the pain set in. Her ROM was normal, just c/o pain. Since the injury the pain is somewhat better and she has maintained her ROM. Every once in a while she has an ache in the shoulder. She denies occ discomfort at night. She states the pain does not limit her daily activities. [facility], [facility] Social History (Updated 02/07/25 @ 08:35 by AAMIR Grey) Patient Tobacco Use Status: Never used Tobacco Current occupational status: retired Current occupation: right hand dominant Review of Systems Const All systems reviewed & are unremarkable except as noted in HPI and below Physical Exam Vital Signs: BMI result Body Mass Index 22.7 Const General: cooperative and no acute distress Orientation/consciousness: patient oriented x3 Resp Effort & Inspection: normal respiratory effort and able to speak in complete sentences Cardio Peripheral pulses: Peripheral pulses 2+ throughout Neuro General: patient oriented x3 Extrem Other: Left shoulder normal to inspection. She has full range of motion in all planes. 5/5 rotator cuff strength. Mild tenderness over the proximal biceps tendon. No tenderness over the AC joint. Neurovascularly intact. Results Reviewed Results Reviewed: X-rays of the left shoulder obtained in the office today and reviewed by me show mild arthritis over the glenohumeral joint and AC joint. Assessment & Plan Assessment & Plan (1) Arthritis of left acromioclavicular joint: Code(s): M19.012 - Primary osteoarthritis, left shoulder Category: Medical Plan: At the time of injury the patient may have strained the AC joint however with time her symptoms have resolved. I did recommend a course of physical therapy or home exercises which she decided to take the home exercises. If symptoms arise or there is any concerns she will contact our office otherwise follow up as needed. Orders: Orders XR shoulder LT min 2V Today M25.512 - Pain in left shoulder Coding Level of Care Code New Pt Level 3 (59208) Complex EM visit Add On G2211 Diagnoses Arthritis of left acromioclavicular joint M19.012
[2025-02-07 08:32] VITALS: BMI 22.7
== END 2025-02-07 08:56 | disposition home or self-care (01) ==
LOC: HO.HOS 08:01
PROVIDERS: PCP Internal Medicine; Visit Provider Physician Assistant
DX: M19.012 Primary osteoarthritis, left shoulder (principal)
CPT/HCPCS: 99203; G2211

== ENCOUNTER → 2025-02-07 08:13 | Outpatient (BNV) | payer MEDICARE, OTHER, SELFPAY | PROVIDERS: Visit Provider Radiology Diagnostic Radiology | DX: M25.512 Pain in left shoulder (principal) | CPT/HCPCS: 73030 ==

== ENCOUNTER 2025-02-07 11:21 | Outpatient (REF) | payer MEDICARE, OTHER, SELFPAY ==
--- NOTE | ~2025-02-07 | XR_ITS ---
EXAMINATION: XR SHOULDER 2 OR MORE VIEWS LEFT HISTORY: M25.512 - Pain in left shoulder COMPARISON: There are no prior studies available for comparison. FINDINGS: Three views of the left shoulder are submitted. Osseous mineralization is normal. There is a fracture of the body of the scapula which demonstrates blurred margins and mild sclerosis consistent with a subacute or chronic injury. No acute fracture is seen. There is mild narrowing of the glenohumeral joint. The soft tissues are unremarkable. XR/XR shoulder LT min 2V IMPRESSION: Findings consistent with a subacute versus chronic fracture of the scapula. Clinical correlation and comparison with any prior outside studies is recommended. Electronically signed by: Quique Nunes MD 02/07/2025 08:31 AM EDT
--- OUTSIDE RECORDS SUMMARY | 2025-02-08 11:47 | XMS_ITS | Data Portability ---
Author Organization [facility], Telehealth Patient Home Address [address] [place] [address] Assessment Encounter Date Assessment Date Assessment LastModified by Organization Details LastModified Time 02/06/2024 02/06/2024 [address] [place] [address] (DISPATCHER REFINERY) : MDM LOW MUST MEET 2 OF [...] COVERED Not available 02/06/2024 10:23:17 04/25/2024 04/25/2024 [address] [place] [address] (DISPATCHER REFINERY) MDM MODERATE MUST MEET 2 OUT OF [...] COVERED Not available 04/25/2024 09:54:52 09/21/2024 09/21/2024 [address] [place] [address] (DISPATCHER REFINERY) : MDM LOW MUST MEET 2 OF [...] COVERED Not available 09/21/2024 10:51:34 10/31/2024 10/31/20[place] [address] [place] [address] (DISPATCHER REFINERY) MDM MODERATE MUST MEET 2 OUT OF [...] D, 25-hydrox y, total, serum 2024 025 [facility], [address], 10/31/2024 09:48:21 Referral None recorded. Procedures None recorded. Surgeries None recorded. Imaging None recorded. Medication Orders ibandrona te 150 mg tablet 2024 025 ELIZABETH [id number], [address] [facility], [place], [address], 10/31/2024 09:47:02 Patient TargetsNo targets recorded. Patient Instructions Encounter Date Encounter Id Patient Instructions Last Modified By Organization Details Last Modified Time 02/06/2024 [id number] knee arthritis: care instructions Not available 02/06/2024 10:23:17 04/25/2024 [id number] pulse oximetry* ELIZABETH Not available 04/25/2024 10:02:11 leg and ankle edema: care instructions Not available 04/25/2024 09:55:26 08/21/2024 [id number] knee arthritis: care instructions Not available 08/21/2024 11:37:45 pulse oximetry* Not available 08/21/2024 11:37:20 09/21/2024 [id number] knee arthritis: care instructions Not available 09/21/2024 10:51:42 10/31/2024 [id number] osteoporosis: care instructions Not available 10/31/2024 09:47:01 Reason for Referral None Reported. Results Created Date Observation Date Name Description Value Unit Range Abnormal Flag Note LastModifiedBy Organization Detail LastModifiedTime 04/25/2004/25/2024 pulse oxime try* Result 98% Not Available [facility] [address] [place] [address], [place], [address], 04/23/2024 14:04:44 08/21/19 25 08/21/2024 pulse oxime try* Result 98 Not Available [facility] [address] [place] [address] D, [place], [address], 08/17/2024 08:57:39 04/06/2004/06/2024 chris LAWRENCE, miguelangel al, bilfelipa toussaint No observ ation record ed. [email or web address] [facility] [address], [place], [address], 04/06/2024 11:05:39 06/06/20 24 05/31/2024 cardi ac stres s test No observ ation record ed. [email or web address] [facility] [address], [place], [address], 06/06/2024 08:45:13 06/12/20 24 06/12/2024 trans -thor acic echoc ardio gram (TTE) (PROC ) No observ ation record ed. [email or web address] [facility] [address], [place], [address], 06/12/2024 09:58:36 10/18/19 25 10/16/2024 bone densi ty No observ ation record ed. [email or web address] [facility] [address] [facility] [address], [place], [address], 10/19/2024 09:32:50 11/21/19 25 11/19/2024 XR, clementina nelson, 2 or more view No observ ation record ed. [address], [place], [address], 11/22/2024 22:26:11 Result Notes None recorded. Problems Name Problem SNOMED Code Status Onset Date Resolution Date Notes Provider Name and Address Organization Details Recorded Time Ischemic heart disease 496962135 Active 2017 s/p stent 2004 Not Available [facility] 3 12:18:28 Hyperchol esterolem ia 50116509 Active 2017 Not Available [facility] 3 12:18:27 History of myocardia l infarctio n 687677658 Active 2017 Not Available [facility] 3 12:18:28 Hypertens gabriela disorder 32263804 Active 2017 Not Available [facility] 3 12:18:28 Osteopeni a 531769966 Active 2017 Not Available [facility] 3 12:18:27 Cobalamin deficienc y 514603697 Active 2019 Not Available [facility] 3 12:18:27 Lumbar arthritis 274724248 Active 2019 Not Available [facility] 3 12:18:28 Perniciou s anemia 27724744 Active 2019 b12 def Not Available [facility] 3 12:18:28 Eczema 40458919 Active 2021 Not Available [facility] 12:18:28 Hyperkale viry 57249857 Active 2021 Not Available [facility] 3 12:18:27 Osteoarth ritis of knee 594061046 Active 2022 Not Available [facility] 3 12:18:27 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 Not Available [facility] 3 12:18:28 Pain of left shoulder joint 539637881723 68221 Active 2022 Not Available [facility] 3 12:18:27 Calcific tendiniti s of left shoulder 193770476952 108 Active 2022 Not Available [facility] 3 12:18:27 Vitamin D deficienc y 16585406 Active 2022 Anthony Fierro, [address] [place] [address], [address], [facility] 3 14:47:52 Postmenop ausal osteopeni a 480984113 Active 2023 Anthony Fierro, [address] [place] [address], [address], [facility] 4 10:25:23 Pain of bilateral knee joints 607042379766 104 Active 2023 Anthony Fierro DO [address] [place] [address], [address], [facility] 4 10:27:34 Edema of lower extremity 707537718 Active 2023 Anthony Fierro DO [address] [place] [address], [address], [facility] 4 10:36:58 Osteoporo sis 88057924 Active 2024 Anthony Fierro DO [address] [place] [address], [address], [facility] 5 09:45:56 Pain of left shoulder region Active 2024 Anthony Fierro DO [address] [place] [address], [address], [facility] 5 14:20:27 Left rotator cuff strain Active 2024 Anthony Fierro DO [address] [place] [address], [address], [facility] 5 22:27:16 Problem Notes None recorded. Procedures Surgical History Date Name Laterality Status Provider Name and Address Organization Details Recorded Time 025 Corticosteroid Injection completed Anthony Fierro DO [address] [place] [address], [address], [facility] 09/21/2024 10:51:23 025 Corticosteroid Injection completed Anthony Fierro DO [address] [place] [address], [address], [facility] 08/21/2024 11:37:15 024 Corticosteroid Injection completed Anthony Fierro DO [address] [place] [address], [address], [facility] 02/06/2024 10:22:54 024 Corticosteroid Injection completed Anthony Fierro DO [address] [place] [address], [address], [facility] 01/18/2024 12:03:15 023 Corticosteroid Injection completed Anthony Fierro DO [address] [place] [address], [address], [facility] 06/20/2023 11:50:16 023 Corticosteroid Injection completed Anthony Fierro DO [address] [place] [address], [address], [facility] 05/27/2023 14:39:49 023 Corticosteroid Injection completed Anthony FierroDO [address] [place], [address], [facility] 11/16/2022 15:59:32 023 Corticosteroid Injection completed Lupe Law [facility] 10/26/2022 13:39:01 023 Corticosteroid Injection completed Anthony Fierro, [address] [place], [address], [facility] 10/15/2022 12:32:01 Imaging Results None recorded. Procedure Notes None recorded. Medical Equipment None Reported. Allergies Allergen ID Allergen Name Allergen Category Reaction Reaction Severity Criticality Documentation Date Start Date Code Code System Note Provider Name and Address Organization Details Recorded Time 1960 lisinopri l medicatio n cough Not available Not available 02/13/2018 98933 RxNorm [facility] 8 08:40:51 Medications Name Sig Start Date [...] Updated DateTime 09/21/2024 152.4 cm 24.4 kg/m2 71004.05 g Rudolph Carlson [place] Nargis [facility] 09/21/2024 10:26:59 Date Recorded Body height Body mass index (BMI) Body weight Heart rate Oxygen saturation Oxygen saturation in Arterial blood by Pulse oximetry Systolic And Diastolic Provider Name and Address Organization Details Last Updated DateTime 5 152.4 cm 24.4 kg/m2 45268.0 5 g 71 /min 99 % 99 % 140/70 mm[Hg] Charu Lidner [facility] 5 09:36:03 Date Recorded Body height Body mass index (BMI) Body weight Heart rate Oxygen saturation Oxygen saturation in Arterial blood by Pulse oximetry Systolic And Diastolic Provider Name and Address Organization Details Last Updated DateTime 4 152.4 cm 24.4 kg/m2 22681.0 5 g 63 /min 98 % 98 % 130/70 mm[Hg] Charu Linder [facility] 4 09:45:51 Social History Question Answer Notes LastModified by Organizat ion Details LastModified Time Tobacco Smoking Status Never Smoker Not Available [facility] 05/27/2020 03:36:23 What Was The Date Of Your Most Recent Tobacco Screening? 10/31/2024 [email or web address] Information not available 10/31/2024 Sex: Unknown Functional [...] virus, quadrivalent, preservative 8 completed Not Available [facility] 06/28/2023 08:21:20 Influenza, split virus, quadrivalent, preservative 2 completed Not Available [facility] 06/28/2023 08:21:20 influenza, unspecified formulation 3 completed Not Available [facility] 06/28/2023 08:21:20 Respiratory syncytial virus (RSV) vaccine, unspecified 3 completed Not Available [facility] 06/28/2023 08:21:20 Respiratory syncytial virus (RSV) vaccine, unspecified 3 completed Not Available [facility] 06/28/2023 08:21:20 Influenza, [place] 4 completed Jason mattson [place] [facility] 05/18/2024 11:14:19 zoster live 9 completed Not Available [facility] 06/28/2023 08:21:20 Influenza, split virus, quadrivalent, preservative 9 completed Not Available [facility] 06/28/2023 08:21:20 zoster live 9 completed Not Available [facility] 06/28/2023 08:21:20 Pneumococcal conjugate PCV 13 0 completed Not Available [facility] 06/28/2023 08:21:20 Influenza, split virus, quadrivalent, preservative 0 completed Not Available [facility] 06/28/2023 08:21:20 COVID-19, mRNA, LNP-S, PF, 100 mcg/0.5mL dose or 50 mcg/0.25mL dose 1 completed Not Available [facility] 06/28/2023 08:21:20 COVID-19, mRNA, LNP-S, PF, 100 mcg/0.5mL dose or 50 mcg/0.25mL dose 1 completed Not Available [facility] 06/28/2023 08:21:20 pneumococcal polysaccharide PPV23 7 completed Not Available [facility] 06/28/2023 08:21:20 Tdap 0 completed Not Available [facility] 06/28/2023 08:21:20 Past Encounters Encounter ID Performer Location Encounter Start Date Encounter Closed Date Diagnosis/Indication Diagnosis SNOMED-CT Code Diagnosis ICD10 Code Diagnosis Note [id number] DO Mireya [facility] [address] [facility] [address] 02/13/2018 10:02:40 02/13/2018 11:32:26 Osteopenia 338595953 M85.80 taking vitamin d supplement no calcium due to gi upset getting from diet Ischemic h eart disease 058103068 I25.9 comp;letel y asymptomat ic Hypertensive disorder 38 860633 I10 excellent bp no chng in meds Hypercholesterolemia 136 78331 E78.00 LDL was 67 HDL 60 superb reviewed in detail [id number] Anthony Fierro [facility] [address] [facility] [address] [address] 03/31/2018 10:55:35 03/31/2018 12:27:12 Dysfunction of eustachian tube 98956091 H69.92 Hypertensive disorder 38 284369 I10 stable [id number] Anthony Fierro [facility] [address] [facility] [address] [facility] [place] [address] 08/18/2018 09:51:44 08/18/2018 12:21:24 Hypertensive disorder 93640624 I10 excellent bp no chng in meds Hypercholesterolemia 136 19006 E78.00 LDL was 67 HDL 60 superb reviewed in detail Upper resp iratory infection 78688349 J06.9 has been slowly resolving [id number] Anthony Fierro [facility] [address] [facility] [address] [address] 02/14/2019 08:53:18 02/14/2019 09:37:32 Hypertensive disorder 90033206 I10 excellent bp no chng in meds dr tom happy with current regimen Hypercholesterolemia 136 86172 E78.00 LDL was 64 HDL 60 superb reviewed in detail Ischemic h eart disease 609186276 I25.9 completely asymptomat ic unsure what the last back pain episode was has not returned but will calll me immmediate ly if it returns Osteopenia 040877153 M85 .80 taking vitamin d supplement no calcium due to gi upset getting from diet but has been doing wgt exercises and working hard and is even doing stretching exercises [id number] Anthony Fierro [facility] [address] [facility] [address] [address] 08/22/2019 08:57:57 08/22/2019 09:58:10 Ischemic heart disease 876398971 I25.9 completely asymptomat ic unsure what the last back pain episode was has not returned but will calll me immmediate ly if it returns Hypertensive disorder 38 786215 I10 excellent bp no chng in meds dr tom happy with current regimen Hypercholesterolemia 136 22890 E78.00 LDL was 66 HDL 56 superb reviewed in detail Cobalamin deficiency 190 315538 E53.8 B12 level 146 Osteopenia 836254915 M85 .80 taking vitamin d supplement no calcium due to gi upset getting from diet but has been doing wgt exercises and working hard and is even doing stretching exercises Inguinal pain 371851303 R10.2 will treat with meloxicam for 10 days [id number] Anthony Fierro [facility] [address] [facility],[place] [address] 09/26/2019 11:51:20 09/26/2019 12:16:23 Hypertensive disorder 20032162 I10 excellent bp no chng in meds dr tom happy with current regimen Cobalamin deficiency 190 496859 E53.8 B12 level was 146 and is now 2933 following a month of supplwmwnt s orally will rechk her level in another 4 months and if good will d/c her b12 Ischemic h eart disease 652915768 I25.9 completely asymptomat ic unsure what the last back pain episode was has not returned but will calll me immediatel y if it returns Degenerati ve lumbar spinal stenosis 953880684 M48.061 she has been taking meloxicam prn for bad apin with some relief i explained to her the problems with nsaids particular luis eduardo in people with hx of ischemic heart and how we need to be extra careful with its use pt understand s [id number] Anthony Fierro [facility] [address] [facility],[place] [address] 02/25/2020 10:20:44 02/25/2020 10:54:07 Hypercholesterolemia 40931241 E78.00 LDL was 66 HDL 56 superb reviewed in detail Hypertensive disorder 38 082828 I10 excellent bp no chng in meds dr tom happy with current regimen Osteopenia 452591612 M85 .80 taking vitamin d supplement no calcium due to gi upset getting from diet but has been doing wgt exercises and working hard and is even doing stretching exercises History of myocardial infarction 506350286 I25.2 asymptomat ic Cobalamin deficiency 190 943753 E53.8 B12 level was 146 and is now 2933 following a month of supplwmwnt s orally will rechk her level in another 4 months and if good will d/c her b12 Lumbar arthritis 5406715 01 M46.96 hurts with any signif exertion but otherwise stable Pernicious anemia 302715 09 D51.0 was stable in josephine will need rechk [id number] Anthony Fierro [facility] [address] [facility] [address],[employer] [place] [address] 10/03/2020 11:08:14 10/03/2020 12:44:58 Hypertensive disorder 47916911 I10 excellent bp no chng in meds dr tom happy with current regimen Hypercholesterolemia 136 45081 E78.00 LDL was 66 HDL 56 superb reviewed in detail Ischemic h eart disease 820545026 I25.9 completely asymptomat ic unsure what the last back pain episode was but will me immediatel y if having any chest pain Lumbar arthritis 0493159 01 M46.96 hurts with any signif exertion but otherwise stable but overall she is haniging in there uses diclofenac bid but has used the meloxicam before too she will stay on the diclof with the option of holding the second dose if doing good Cobalamin deficiency 190 652080 E53.8 we will check her b12 level Arthritis of right knee 2735136720 699563 M13.861 told us that she saw dr carter for her knee pain told it was djd and she was given a cortisone inj with good response told her to let us know if and when she needs another that we would give her the shot if dr carter unable to see [id number] Anthony Fierro [facility] [address] [facility] [address] [place] [address] 10/28/2020 16:21:49 10/28/2020 17:04:51 Lumbago with sciatica 572577339 M54.41 Hypertensive disorder 38 834457 I10 excellent bp no chng in meds dr tom happy with current regimen [id number] Anthony Fierro [facility] [address] [facility] [address] [address] 12/01/2020 14:07:54 12/01/2020 15:04:14 Spinal stenosis of lumbar region 32740440 M48.062 awaiting appt with neurosurg will send mri copy [id number] Anthony Fierro [facility] [address] [facility] [address] 02/06/2021 11:56:46 02/06/2021 12:37:18 Pre-surgery evaluation 122711197 Z01.818 Per the Revised cardiac Risk stratifica tion , her MACE is determined to be at a low level and she currently does not require further evaluation .patient understand s to take her medication s as usual on the day of her procedure. [facility] [place] [id number] Anthony Fierro [facility] [address] [facility] [address] 04/06/2021 10:07:32 04/07/2021 16:47:32 Hypertensive disorder 48236653 I10 excellent bp no chng in meds dr tom happy with current regimen Ischemic h eart disease 700621335 I25.9 completely asymptomat ic unsure what the last back pain episode was but will me immediatel y if having any chest pain Low back pain 077415538 M54.5 at incision site area is sl puffy biut no evid of infect will tx wwith nsaid and oxycod at nightpt to call the surgeon [id number] Anthony Fierro [facility] [address] [facility] [address] [address] 10/12/2021 09:58:13 10/13/2021 11:03:26 Hypercholesterolemia 75261780 E78.00 LDL was 66 HDL 56 superb reviewed in detail Hypertensive disorder 38 884384 I10 excellent bp no chng in meds dr tom happy with current regimen Lumbar arthritis 6198797 01 M46.96 hurts with any signif exertion but otherwise stable surgery has been good but overall she is haniging in there uses diclofenac bid but has used the meloxicam before too she will stay on the diclof with the option of holding the second dose if doing good Ischemic h eart disease 423285920 I25.9 completely asymptomat ic unsure what the last back pain episode was but will me immediatel y if having any chest pain [id number] Atnhony Fierro [facility] [address] [facility],[place] [address] 04/16/2022 08:58:23 04/16/2022 13:50:19 Hypertensive disorder 50360250 I10 excellent bp no chng in meds dr tom happy with current regimen History of myocardial infarction 668821279 I25.2 asymptomat ic Ischemic h eart disease 748042207 I25.9 completely asymptomat ic unsure what the last back pain episode was but will me immediatel y if having any chest pain Eczema 54707645 L30.9 [id number] Anthony Fierro [facility] [address] [facility] [address] 10/15/2022 11:54:15 10/15/2022 13:47:16 Osteoarthritis of knee 394324746 M17.9 sanjay her jarek inj to right knee [id number] Anthony Fierro [facility] [address] [facility] [address] 10/20/2022 08:47:20 10/20/2022 09:24:53 Hypertensive disorder 37826985 I10 excellent bp no chng in meds dr tom happy with current regimen Hypercholesterolemia 136 10263 E78.00 needs new lab Ischemic h eart disease 792938067 I25.9 completely asymptomat ic unsure what the last back pain episode was but will me immediatel y if having any chest pain Lumbar arthritis 8282322 01 M46.96 hurts with any signif exertion but otherwise stable surgery has been good but overall she is haniging in there uses diclofenac bid but has used the meloxicam before too she will stay on the diclof with the option of holding the second dose if doing good Cobalamin deficiency 190 354888 E53.8 we will check her b12 level [id number] Anthony Fierro DO [facility] [address] [facility] [address] [address] 10/26/2022 13:21:02 10/26/2022 16:33:48 Osteoarthritis of knee 172327643 M17.9 sanjay her jarek inj to left knee [id number] Anthony Moses Ronen [facility] [address] [facility] [address] [address] 11/16/2022 14:52:26 11/16/2022 15:56:39 Osteoarthritis of shoulder region 30563263 M19.019 jarek inj well tolerat [id number] Anthony Moses Ronen [facility] [address] [facility], [place] 7 05/13/2023 14:00:54 05/13/2023 15:04:16 Hypercholesterolemia 67572711 E78.00 needs new lab no prob with meds Ischemic h eart disease 129777541 I25.9 completely asymptomat ic unsure what the last back pain episode was but will me immediatel y if having any chest pain Hypertensive disorder 38 238337 I10 excellent bp no chng in meds dr tom happy with current regimen Vitamin D deficiency 347 75032 E55.9 need to chk lab Osteoarthr itis of knee 630883923 M17.9 will order kenalog for her to get cortisone inj of both knees [id number] Anthony Fierro [facility] [address] [facility] [address] 05/27/2023 14:17:08 05/27/2023 15:20:05 Osteoarthritis of knee 276901792 M17.9 M17.11 well tolerated [id number] [facility] [address] [facility],[address] [place] 7 06/20/2023 11:29:44 06/20/2023 12:21:47 Osteoarthritis of knee 826774865 M17.9 M17.11 well tolerated [id number] [facility] [address] [facility] [address] [place] 7 12/23/2023 09:48:56 12/23/2023 10:51:28 Depression screening 965314791 Z13.31 neg Postmenopa usal osteopenia 900626106 M85.80 will rechk her bone density since 2 yrs ago had lost some mass Pain of bi lateral knee joints 3546277884 17489 M25.561 M25.562 we will order kenalog and set up appt Hyperkalemia 52202302 E8 7.5 will need lab to chk Osteoarthr itis of knee 333716921 M17.9 M17.11 will order the kenalog and set up inj Eczema 32972102 L30.9 will try a very TINY amount of desonide cream Hypertensive disorder 38 866233 I10 excellent bp no chng in meds dr tom happy with current regimen Edema of l ower extremity 770277449 R60.0 just a trace we will use elevation support stockings etc [id number] Anthony Fierro [facility] [address] [facility],[place] [address] 01/18/2024 11:10:26 01/18/2024 13:59:45 Osteoarthritis of knee 560562281 M17.9 M17.11 well sanjay [id number] Anthony Fierro [facility] [address] [place] [address] 02/06/2024 10:01:06 02/06/2024 11:05:35 Osteoarthritis of knee 125031921 M17.9 M17.11 well sanjay [id number] [facility] [facility] [address] [place] [address] 04/25/2024 09:35:39 04/25/2024 10:00:47 Hypercholesterolemia 14272404 E78.00 doing well no issues Ischemic h eart disease [id number] I25.9 completely asymptomat ic unsure what the last back pain episode was but will me immediatel y if having any chest pain Hypertensive disorder 38 008612 I10 excellent bp no chng in meds dr tom happy with current regimen Edema of l ower extremity 126305047 R60.0 no edema Cobalamin deficiency 190 721262 E53.8 we will check her b12 level [id number] Anthony Ibarraham [facility] [address] [facility] [address] [place] [address] 08/21/2024 08:50:58 08/21/2024 10:03:10 Ischemic heart disease 303569076 I25.9 completely asymptomat ic unsure what the last back pain episode was but will me immediatel y if having any chest pain Osteoarthr itis of knee 152768378 M17.9 M17.11 well sanjay [id number] Anthony Ibarraham [facility] [address] [address] 09/21/2024 10:20:36 09/21/2024 13:21:45 Depression screening [id number] Z13.31 neg Osteoarthr itis of knee 203479984 M17.9 M17.11 well sanjay [id number] Anthony Ibarraham [facility] [address],[place] [address] [address] [facility] [place] [address] 10/31/2024 09:27:01 10/31/2024 11:48:26 Depression screening [id number] Z13.31 neg Hypercholesterolemia 136 51439 E78.00 doing well no issues Hypertensive disorder 38 682172 I10 excellent bp no chng in meds dr tom happy with current regimen Ischemic h eart disease 258298825 I25.9 completely asymptomat ic unsure what the last back pain episode was but will me immediatel y if having any chest pain Vitamin D deficiency 347 85782 E55.9 need to chk lab Osteoporosis 92513103 M8 1.0 st;ill very osteoporot ic despite [...] Quach Member ID Guarantor Name 10/29/2024 2 [employer] [facility] [id number] Michelle Aparicio [id number] Michelle Aparicio 10/28/2024 1 MEDICARE [place]: [facility] [employer] Michelle Aparicio [id number] Michelle Aparicio Notes Date Note Type Note Provider Name and Address Organization Details Recorded Time 02/06/20 24 text/htm l here for left knee jarek injhas had before with great reliefnow left knee has been bothering as of lateno contraindicat Anthony Moses Ronen, DO [address] [place] [address], [phone], [facility] 02/06/2024 10:27:01 04/25/20 24 [...] memory loss issues Anthony Moses Ronen, DO [address] [place] [address], [phone], [facility] 04/25/2024 09:58:18 08/21/19 25 text/htm l here for her jarek inj of her right knee which has been getting worse over time Anthony SandraKiana Fierro, DO [address] [place] [address], [phone], [facility] 08/21/2024 11:38:11 09/21/19 25 text/htm l here for jarek inj Anthony Moses Ronen DO [address] [place] [address], [phone], [facility] 09/21/2024 10:52:29 11/01/19 25 [...] lightheadedness or dizziness. Anthony Fierro, DO [address] [facility], [place], [address], [facility] 10/31/2024 09:58:19 OBGyn Episode No OBEpisode recorded.
--- OUTSIDE RECORDS SUMMARY | 2025-02-08 11:47 | XMS_ITS | Encounter Summary ---
Author Organization [facility] Address [address] [place] [address] Phone Care Team Providers Care Office Technology Instructor Name Role Phone Anthony Hardwick Primary Care Provider [phone] Encounter Details Date Type Department Care Team (Late st Contact Info) Description 04/21/2022 Transcribe Orders [facility] [address] [place] [address] Geovanna Sainz PA [address] [place] [address] [place] [address] Social History Tobacco Use Types Packs/Day Years Used Date Smoking Tobacco: Never Smokeless Tobacco: Never Alcohol Use Standard Drinks/Week Comments Yes 7 (1 standard drink = 0.6 oz pur e alcohol) Comments No Sex and Gender Information Value Date Recorded Sex Assigned at Not on file Legal Sex Female 10:11 PM EDT Gender Identity Not on file Sexual Orientation Not on file documented as of this encounter Plan of Treatment Upcoming Encounters Date Type Department Care Team (Late st Contact Info) Description 01/11/2025 Procedure Pass [facility], [facility] [address] [place] [address] 05/01/2025 8:20 AM EDT Office Visit [facility] [address], [address] [place] [address] Chris Francis MD [address] [facility], [address] [address] [email or web address] 08/16/2025 8:45 AM EST Appointment [facility], [address] [address] System, Provider Not In, [facility] [address] [address] documented as of this encounter Visit Diagnoses Not on filedocumented in this encounter Care Teams Office Technology Instructor Relationship Specialty Start Date End Date Anthony Hardwick DO [email or web address] PCP - General 05/12/17 documented as of this encounter Additional Source Comments The information contained in this document represents components of the legal health record. It is not the complete legal health record.[facility]
== END 2025-02-07 11:22 | disposition home or self-care (01) ==
LOC: HO.HOSX 11:21
PROVIDERS: Visit Provider Physician Assistant
DX: M19.012 Primary osteoarthritis, left shoulder (principal); M25.512 Pain in left shoulder; Z79.899 Other long term (current) drug therapy; Z79.82 Long term (current) use of aspirin
CPT/HCPCS: 73030; 99202